=== PATIENT | female | born 1960 | race Caucasian/White ===

== ENCOUNTER 2019-10-31 15:09 | Emergency (ER) | payer MEDICAID ==
[~2019-10-31] VITALS: Ht 162.6 cm; Wt 77.0 kg
[~2019-10-31 15:09] MED LIST: ASPI-1497 PO; BENA20TA10 PO; BENA40TA9 MT; FERR325T6 PO; GLIM2TAB30; GLIP5TAB3 PO; GLUCO8; GUAI5SYR3 MT; GUAI600T26 MT; IBUP-516 PO; LEVO500T2 MT; LORA10TA7 PO; MELO15TA13 PO; METF-415 PO; SIMV-43; SIMV-46 PO; VIT1TABL62
[2019-10-31] MEDS ORDERED: KETOROLAC 30MG/ML VIAL IM ONE (20:00)
[2019-10-31] MEDS ORDERED: ACETAMINOPHEN WITH CODEINE 300/30MG TABLET PO ONE (20:00)
[2019-10-31] MEDS ORDERED: ONDANSETRON 4MG ODT PO ONE (21:15)
[2019-10-31 22:46] VITALS: BP 132/82
== END 2019-10-31 22:47 | disposition home or self-care (01) ==
LOC: ER 15:09
DX: M25.552 Pain in left hip (principal); M25.562 Pain in left knee; E11.9 Type 2 diabetes mellitus without complications; I10 Essential (primary) hypertension; W01.0XXA Fall on same level from slipping, tripping and stumbling without subsequent striking against object, initial encounter; Y93.9 Activity, unspecified; Y92.9 Unspecified place or not applicable; Z79.82 Long term (current) use of aspirin
CPT/HCPCS: 73522; 73562; 82962; 96372; 99284; J1885; L1830; Q0162